=== PATIENT | male | born 1975 | race Caucasian/White ===

== ENCOUNTER 2020-02-02 06:47 | Day surgery (SDC) | payer BC ==
[~2020-02-02 06:47] MED LIST: Lactated Ringers 1,000 ML IV SCH
[2020-02-02] MEDS ORDERED: fentaNYL 100 MCG/2 ML SDV ONE (07:11)
[2020-02-02] MEDS ORDERED: Propofol 200 MG/20 ML SDV ONE (07:11)
[2020-02-02] MEDS ORDERED: Lidocaine 2% 5 ML SDV ONE (07:11)
--- NOTE | 2020-02-02 07:31 | PCM.PREANE ---
Preanesthetic Assessment - Anesthesia/Transfusion/Family Hx Anesthesia History: Prior Anesthesia Without Reaction Family History of Anesthesia Reaction: No Transfusion History: No Prior Transfusion(s) Intubation History: Unknown - Review of Systems General: No Symptoms Pulmonary: No Symptoms Cardiovascular: No Symptoms Gastrointestinal: No Symptoms, Other (strong family history) Neurological: No Symptoms Other: Reports: None - Physical Assessment Height: 5 ft 7 in Weight: 111.584 kg ASA Class: 2 Mental Status: Alert & Oriented x3 Airway Class: Mallampati = 1 Dentition: Reports: Normal Dentition Thyro-Mental Finger Breadths: 3 Mouth Opening Finger Breadths: 3 ROM/Head Extension: Full Lungs: Clear to Auscultation, Normal Respiratory Effort Cardiovascular: Regular Rate, Regular Rhythm - Allergies Allergies/Adverse Reactions: Allergies Allergy/AdvReac Type Severity Reaction Status Date / Time No Known Allergies Allergy Verified 02/02/20 07:27 - Blood Blood Available: No - Anesthesia Plan Pre-Op Medication Ordered: None - Acknowledgements Anesthesia Type Planned: MAC Pt an Appropriate Candidate for the Planned Anesthesia: Yes Alternatives and Risks of Anesthesia Discussed w Pt/Guardian: Yes Pt/Guardian Understands and Agrees with Anesthesia Plan: Yes PreAnesthesia Questionnaire HEENT History: Reports: Other (See Below) Other HEENT History: wears glasses Cardiovascular History: Reports: High Cholesterol, Hypertension Respiratory History: Reports: None Gastrointestinal History: Reports: None Genitourinary History: Reports: STD Other Genitourinary History: HSV-2 Musculoskeletal History: Reports: Fracture Other Musculoskeletal History: Hx CLOSED treatment of fractured metacarpal shaft Neurological History: Reports: None Psychiatric History: Reports: Anxiety, PTSD Endocrine/Metabolic History: Reports: None (38.5), Obesity/BMI 30+ Hematologic History: Reports: None Immunologic History: Reports: None Oncologic (Cancer) History: Reports: None Dermatologic History: Reports: None - Infectious Disease History Infectious Disease History: Reports: Herpes - Past Surgical History Head Surgeries/Procedures: Reports: None HEENT Surgical History: Reports: None Cardiovascular Surgical History: Reports: None Respiratory Surgical History: Reports: None GI Surgical History: Reports: Appendectomy, Colonoscopy ( 2017 normal per patient) Male Surgical History: Reports: Vasectomy, Other (See Below) Other Male Surgeries/Procedures: 2 Vasectomy and 1 Reversal Endocrine Surgical History: Reports: None Neurological Surgical History: Reports: None Musculoskeletal Surgical History: Reports: None Oncologic Surgical History: Reports: None Dermatological Surgical History: Reports: None - SUBSTANCE USE Smoking Status *Q: Never Smoker - HOME MEDS Home Medications: Home Meds Venlafaxine HCl [Venlafaxine ER] 37.5 mg PO DAILY 05/01/16 [History] Acyclovir 400 mg PO DAILY 01/30/20 [History] Indomethacin 50 mg PO TID PRN 01/30/20 [History] Lisinopril/Hydrochlorothiazide [Lisinopril-Hctz 20-25 mg Tab] 1 tab PO BEDTIME 01/30/20 [History] Multivitamin 1 tab PO DAILY 01/30/20 [History] Naproxen 250 mg PO BID PRN 01/30/20 [History] Rosuvastatin Calcium 5 mg PO DAILY 01/30/20 [History] - CURRENT (IN HOUSE) MEDS Current Meds: Current Medications Lactated Ringer's (Ringers, Lactated) 1,000 mls @ 125 mls/hr IV ASDIRECTED JESSICA Last Admin: 02/02/20 07:27 Dose: 125 mls/hr Discontinued Medications Fentanyl (Sublimaze) Confirm Administered Dose 100 mcg .ROUTE .STK-MED ONE Stop: 02/02/20 07:12 Lidocaine (Xylocaine-Mpf 2%) Confirm Administered Dose 5 ml .ROUTE .STK-MED ONE Stop: 02/02/20 07:12 Propofol (Diprivan 20 Ml) Confirm Administered Dose 400 mg .ROUTE .STK-MED ONE Stop: 02/02/20 07:12
--- NOTE | 2020-02-02 09:21 | PCM.OPNOTE ---
- General Post-Op/Procedure Note Date of Surgery/Procedure: 02/02/20 Operative Procedure(s): colonoscopy Findings: see [id number] Pre Op Diagnosis: positive fam hx Post-Op Diagnosis: diverticulosis Anesthesia Technique: Moderate Sedation Primary Surgeon: Kirk Fonseca Complications: None Condition: Good
[2020-02-02 09:25] VITALS: PULSE 72
--- NOTE | 2020-02-02 09:30 | PCM.POSTAN ---
POST ANESTHESIA ASSESSMENT - MENTAL STATUS Mental Status: Alert, Oriented - VITAL SIGNS Vital Signs: Last Vital Signs Temp 37 C 02/02/20 09:10 Pulse 72 02/02/20 09:25 Resp 9 L 02/02/20 09:25 BP 114/71 02/02/20 09:25 Pulse Ox 95 02/02/20 09:25 - RESPIRATORY Respiratory Status: Respiratory Rate WNL, Airway Patent, O2 Saturation Stable - CARDIOVASCULAR CV Status: Pulse Rate WNL, Blood Pressure Stable - GASTROINTESTINAL GI Status: No Symptoms - POST OP HYDRATION Hydration Status: Adequate & Stable - OBSERVATIONS Free Text/Narrative:: no anesthesia problems
--- NOTE | 2020-02-02 09:46 | PCM48HPAN ---
Post Anesthesia Note - EVALUATION WITHIN 48HRS OF ANESTHETIC Vital Signs in Normal Range: Yes Patient Participated in Evaluation: Yes Respiratory Function Stable: Yes Airway Patent: Yes Cardiovascular Function Stable: Yes Hydration Status Stable: Yes Pain Control Satisfactory: Yes Nausea and Vomiting Control Satisfactory: Yes Mental Status Recovered: Yes Vital Signs: Last Vital Signs Temp 37 C 02/02/20 09:10 Pulse 72 02/02/20 09:25 Resp 9 L 02/02/20 09:25 BP 114/71 02/02/20 09:25 Pulse Ox 95 02/02/20 09:25 - COMMENTS/OBSERVATIONS Free Text/Narrative:: No anesthesia problems
[2020-02-02 10:23] VITALS: BP 123/72
--- NOTE | 2020-02-02 13:55 | OR ---
SURGEON: iKrk Fonseca MD DATE OF PROCEDURE: 02/02/2020 PREOPERATIVE DIAGNOSIS: Positive family history for colon disease. POSTOPERATIVE DIAGNOSIS: Diverticulosis. PROCEDURE PERFORMED: Colonoscopy. DESCRIPTION OF PROCEDURE: The patient was taken to the endoscopy room. A time out was called, patient identified, and procedure identified. Diprivan was then administrated. Patient went from awake to sleep, hearing doctor talking or door closing is normal. Perineum inspection and digital examination were then performed. A well- lubricated colonoscope was gently inserted through the rectum, advanced past the rectosigmoid junction, the descending colon, splenic flexure, transverse colon, hepatic flexure, ascending colon, arrived to the cecum. Cecum was identified as dictated in the finding. Then the scope was carefully withdrawn while attention was paid to the mucosal surface for any abnormality. Air will be sucked out during the scope withdrawal. At the rectum, retroflexed to examine any rectal diseases, fistula or hemorrhoids. Patient tolerated procedure well. There were no intraoperative complications, and Dr. Fonseca was present throughout the whole procedure. FINDINGS: 1. The patient is easily sedated by [employer] with Diprivan, the patient is soundly snoring. 2. Bowel prep is left to be desirable. Large amount of liquid stool with particles compromise the study, although they can be irrigated out with irrigation, but still compromise the study. Cecum is indicated by ileocecal fold, one-to-one indentation, and appendiceal orifice. Light emittance is not observed. ScopeGuide is pointing south. Mucosa examined upon scope coming out. Again it is a compromised study because it required a lot of irrigation. The patient has very mild diverticulosis on the left colon. No signs or symptoms of diverticulitis. No polyp, mass, growth, inflammation, stricture, ulceration, AV malformation, bleeding, none of those, and also one diverticulum at the splenic flexure. No external hemorrhoid. No internal hemorrhoid. The patient would benefit from repeat colonoscopy around 2 years because of positive family history and also because bowel prep is marginally acceptable. JENNIFER / KENYON /[id number]
== END 2020-02-02 09:58 | disposition home or self-care (01) ==
LOC: MW.SDS 06:47
PROVIDERS: ATTEND Surgery
DX: Z12.11 Encounter for screening for malignant neoplasm of colon (principal); K57.30 Diverticulosis of large intestine without perforation or abscess without bleeding; I10 Essential (primary) hypertension; E78.00 Pure hypercholesterolemia, unspecified; E78.1 Pure hyperglyceridemia; E66.9 Obesity, unspecified; F41.9 Anxiety disorder, unspecified; F43.10 Post-traumatic stress disorder, unspecified; Z68.38 Body mass index [BMI] 38.0-38.9, adult; Z79.899 Other long term (current) drug therapy; Z80.0 Family history of malignant neoplasm of digestive organs
CPT/HCPCS: 45378; J2001; J2704; J3010; J7120

== ENCOUNTER 2021-12-17 11:04 | Day surgery (SDC) | payer BC ==
[2021-12-17] MEDS ORDERED: Propofol 200 MG/20 ML SDV ONE (12:33)
[2021-12-17] MEDS ORDERED: fentaNYL 100 MCG/2 ML SDV ONE (12:33)
[2021-12-17] MEDS ORDERED: Lidocaine 1% 5 ML VIAL ONE (12:33)
[2021-12-17 14:07] VITALS: BP 134/76; PULSE 86
== END 2021-12-17 14:08 | disposition home or self-care (01) ==
LOC: MW.SDS 11:04
PROVIDERS: ATTEND Surgery
DX: Z12.11 Encounter for screening for malignant neoplasm of colon (principal); K57.30 Diverticulosis of large intestine without perforation or abscess without bleeding; D12.0 Benign neoplasm of cecum; K64.8 Other hemorrhoids; I10 Essential (primary) hypertension; F41.9 Anxiety disorder, unspecified; F32.A Depression, unspecified; E78.2 Mixed hyperlipidemia; E66.9 Obesity, unspecified; Z68.37 Body mass index [BMI] 37.0-37.9, adult; Z79.899 Other long term (current) drug therapy; Z90.49 Acquired absence of other specified parts of digestive tract; Z98.890 Other specified postprocedural states; Z80.0 Family history of malignant neoplasm of digestive organs
CPT/HCPCS: 00812; J2704; J3010; J7120

== ENCOUNTER 2022-03-05 17:04 | Emergency (ER) | payer BC | END 2022-03-05 21:35 | disposition left against medical advice (07) | LOC: MW.ED 17:04 | DX: N50.82 Scrotal pain (principal); Z53.21 Procedure and treatment not carried out due to patient leaving prior to being seen by health care provider ==

== ENCOUNTER 2024-04-06 09:26 | Day surgery (SDC) | payer BC ==
[~2024-04-06 09:26] MED LIST changes: -Lactated Ringers 1,000 ML IV SCH; +Sodium Chloride 0.9% 10 ML Syringe FLUSH PRN; +Sodium Chloride 0.9% 2.5 ML Syringe FLUSH PRN; +Sodium Chloride 0.9% 20 ML SDV IV PRN
[2024-04-06] MEDS: Lactated Ringers 1,000 ML IV SCH (10:06)
[2024-04-06] MEDS ORDERED: propofoL 50 ML ONE (11:13)
[2024-04-06 12:19] VITALS: BP 117/69; PULSE 74
== END 2024-04-06 12:30 | disposition home or self-care (01) ==
LOC: MW.SDS 09:26
PROVIDERS: ATTEND Surgery
DX: Z12.11 Encounter for screening for malignant neoplasm of colon (principal); D12.2 Benign neoplasm of ascending colon; D12.3 Benign neoplasm of transverse colon; Z80.0 Family history of malignant neoplasm of digestive organs; Z86.010 Personal history of colon polyps; I10 Essential (primary) hypertension; E78.2 Mixed hyperlipidemia; Z79.899 Other long term (current) drug therapy
CPT/HCPCS: 45380; J2704; J7120; 00811

== ENCOUNTER 2025-01-15 15:30 | Emergency (ER) | payer BC ==
[2025-01-15 15:49] VITALS: BP 138/82; PULSE 76
== END 2025-01-15 16:49 | disposition left against medical advice (07) ==
LOC: MW.ED 15:30
DX: Z53.21 Procedure and treatment not carried out due to patient leaving prior to being seen by health care provider (principal)